=== PATIENT | male | born 1955 | race Caucasian/White ===

== ENCOUNTER 2024-04-30 07:56 | Inpatient (IN) ==
--- NOTE | 2024-04-06 14:26 | PAT Medication Instructions ---
Medication Instructions Date of Service April 06, 2024 Home Medications albuterol sulfate 90 mcg/actuation aerosol inhaler 2 puff inhalation Q6H PRN SOB alfuzosin 10 mg tablet,extended release 24 hr 10 mg PO QPM amlodipine 5 mg tablet 5 mg PO QPM aspirin 81 mg capsule 81 mg PO QAM cetirizine 10 mg tablet 10 mg PO HS coenzyme Q10 300 mg capsule (Co Q-10) 300 mg PO QAM ferrous sulfate 325 mg (65 mg iron) tablet (FeroSul) 325 mg PO UD fluticasone propionate 115 mcg-salmeterol 21 mcg/actuation HFA inhaler (Advair HFA) 2 puff inhalation BID fluticasone propionate 50 mcg/actuation nasal spray,suspension (Children's Flonase Allergy Relief) 1 spray intranasal DAILY PRN congestion/sinus symptoms hydrocodone 7.5 mg-acetaminophen 325 mg tablet 1 tab PO Q6H PRN Pain lisinopril 40 mg tablet 40 mg PO QAM meloxicam 7.5 mg tablet 7.5 mg PO BID metformin 500 mg tablet 1,000 mg PO BID montelukast 10 mg tablet (Singulair) 10 mg PO HS multivitamin 1 tab PO QPM omega-3 fatty acids 1 cap PO QPM pantoprazole 20 mg tablet,delayed release 20 mg PO QAM pioglitazone 30 mg tablet (Actos) 30 mg PO QPM rosuvastatin 5 mg tablet 5 mg PO UD tizanidine 4 mg tablet 4 mg PO Q6H trazodone 50 mg tablet 50 mg PO HS Continue as directed rosuvastatin 5 mg tablet 5 mg PO UD ASK your surgeon for instructions meloxicam 7.5 mg tablet 7.5 mg PO BID ASK your prescriber and surgeon aspirin 81 mg capsule 81 mg PO QAM STOP taking 2 weeks before surgery (or as soon as possible if surgery is within 2 weeks) coenzyme Q10 300 mg capsule (Co Q-10) 300 mg PO QAM omega-3 fatty acids 1 cap PO QPM DO NOT take the morning of surgery ferrous sulfate 325 mg (65 mg iron) tablet (FeroSul) 325 mg PO UD lisinopril 40 mg tablet 40 mg PO QAM metformin 500 mg tablet 1,000 mg PO BID pioglitazone 30 mg tablet (Actos) 30 mg PO QPM Take morning of surgery With a small sip of water, OTHERWISE NOTHING TO EAT OR DRINK AFTER MIDNIGHT: albuterol sulfate 90 mcg/actuation aerosol inhaler 2 puff inhalation Q6H PRN SOB (use if needed; please bring rescue inhaler with you to hospital day of surgery if possible) fluticasone propionate 115 mcg-salmeterol 21 mcg/actuation HFA inhaler (Advair HFA) 2 puff inhalation BID fluticasone propionate 50 mcg/actuation nasal spray,suspension (Children's Flonase Allergy Relief) 1 spray intranasal DAILY PRN congestion/sinus symptoms (if needed) hydrocodone 7.5 mg-acetaminophen 325 mg tablet 1 tab PO Q6H PRN Pain (if needed) pantoprazole 20 mg tablet,delayed release 20 mg PO QAM tizanidine 4 mg tablet 4 mg PO Q6H Take evening before surgery albuterol sulfate 90 mcg/actuation aerosol inhaler 2 puff inhalation Q6H PRN SOB (if needed) alfuzosin 10 mg tablet,extended release 24 hr 10 mg PO QPM amlodipine 5 mg tablet 5 mg PO QPM cetirizine 10 mg tablet 10 mg PO HS fluticasone propionate 115 mcg-salmeterol 21 mcg/actuation HFA inhaler (Advair HFA) 2 puff inhalation BID fluticasone propionate 50 mcg/actuation nasal spray,suspension (Children's Flonase Allergy Relief) 1 spray intranasal DAILY PRN congestion/sinus symptoms (if needed) hydrocodone 7.5 mg-acetaminophen 325 mg tablet 1 tab PO Q6H PRN Pain (if needed) metformin 500 mg tablet 1,000 mg PO BID montelukast 10 mg tablet (Singulair) 10 mg PO HS multivitamin 1 tab PO QPM pioglitazone 30 mg tablet (Actos) 30 mg PO QPM tizanidine 4 mg tablet 4 mg PO Q6H trazodone 50 mg tablet 50 mg PO HS Other Notes If you have any questions please call us at [phone] or [phone] or [phone] or [phone]
--- NOTE | 2024-04-09 09:10 | Anesthesiology Consultation ---
Date of Service April 09, 2024 Assessment & Plan (1) Encounter for pre-operative examination: - patient reports upcoming surgeon ordered medical clearance 04/16/24. Dr. Roe. - medical clearance 02/28/24: "...low risk..." - check BSG am DOS. Chart Review Chart Review: Pending: Refer to Additional Notes / Consult section and Patient seen in Pre Admission Testing Teaching & Discussion Pre-Anesthesia Teaching/Discussion Notes: Instructed NPO after midnight before surgery, except medications with 15 cc of water. Medication instructions provided according to the PAT guidelines. History Surgery Operation Date: 04/30/24 09:05 Proposed Procedures p L3-S1 Decompression and Fusion, Spinal Cord Monitoring - Chavez Dunbar, Height/Weight Height: 5 ft 9 in Weight: 90.4 kg Allergies Allergy/AdvReac Type Severity Reaction Status Date / Time No Known Allergies Allergy Verified 04/06/24 10:21 Medications Home Medications Medication Instructions Recorded Confirmed Last Taken albuterol sulfate 90 mcg/actuation 2 puff inhalation Q6H PRN SOB 04/06/24 04/06/24 Unknown aerosol inhaler alfuzosin 10 mg tablet,extended 10 mg PO QPM 04/06/24 04/06/24 Unknown release 24 hr amlodipine 5 mg tablet 5 mg PO QPM 04/06/24 04/06/24 Unknown aspirin 81 mg capsule 81 mg PO QAM 04/06/24 04/06/24 Unknown cetirizine 10 mg tablet 10 mg PO HS 04/06/24 04/06/24 Unknown coenzyme Q10 300 mg capsule (Co 300 mg PO QAM 04/06/24 04/06/24 Unknown Q-10) ferrous sulfate 325 mg (65 mg 325 mg PO UD 04/06/24 04/06/24 Unknown iron) tablet (FeroSul) fluticasone propionate 115 2 puff inhalation BID 04/06/24 04/06/24 Unknown mcg-salmeterol 21 mcg/actuation HFA inhaler (Advair HFA) fluticasone propionate 50 1 spray intranasal DAILY PRN 04/06/24 04/06/24 Unknown mcg/actuation nasal congestion/sinus symptoms spray,suspension (Children's Flonase Allergy Relief) hydrocodone 7.5 mg-acetaminophen 1 tab PO Q6H PRN Pain 04/06/24 04/06/24 Unknown 325 mg tablet lisinopril 40 mg tablet 40 mg PO QAM 04/06/24 04/06/24 Unknown meloxicam 7.5 mg tablet 7.5 mg PO BID 04/06/24 04/06/24 Unknown metformin 500 mg tablet 1,000 mg PO BID 04/06/24 04/06/24 Unknown montelukast 10 mg tablet 10 mg PO HS 04/06/24 04/06/24 Unknown (Singulair) multivitamin 1 tab PO QPM 04/06/24 04/06/24 Unknown omega-3 fatty acids 1 cap PO QPM 04/06/24 04/06/24 Unknown pantoprazole 20 mg tablet,delayed 20 mg PO QAM 04/06/24 04/06/24 Unknown release pioglitazone 30 mg tablet (Actos) 30 mg PO QPM 04/06/24 04/06/24 Unknown rosuvastatin 5 mg tablet 5 mg PO UD 04/06/24 04/06/24 Unknown tizanidine 4 mg tablet 4 mg PO Q6H 04/06/24 04/06/24 Unknown trazodone 50 mg tablet 50 mg PO HS 04/06/24 04/06/24 Unknown Past Medical History Medical History (Updated 04/09/24 @ 09:35 by Carmina Harris PA-C) Arthritis Asthma controlled, stable per pt; last albuterol inhaler use several months ago Diabetes mellitus, type 2 NIDDM Dyslipidemia Hearing loss hearing aids History of anesthesia reaction "during previous colonoscopy ~2013, woke up too early" History of nocturia Hypertension controlled, stable per pt Iron deficiency has been taking since ~10/2023; f/u PCP, then sent to specialist dr. ortega, [facility] Patient denies h/o stroke, seizures, heart attack, heart failure, blood clots/DVTs or blood transfusions. Exercise / Class Metabolic Activity II 4-5 Yardwork/Stairs/Walk up hill (denies chest discomfort or shortness of breath with one flight of stairs) Past Surgical History Surgical History History of esophagogastroduodenoscopy (EGD) 2023, [facility] in [place]; put on pantoprazole "but was never given a diagnosis for the stomach medicine" Hx of colonoscopy 2023 Hx of removal of cyst ~2019, cyst removed from pancreas; done @[facility] in [place], [place] Past Anesthesia History No Family Hx of Anesthesia Complications History of PONV No Hx of PONV and No Hx of Motion Sickness Social History Smoking Status: Former smoker Do You Dip or Chew Tobacco: No Smoking End Date: 25 years ago Hx Alcohol Use: Yes alcohol intake frequency: holidays/special occasions only Hx Substance Use: Yes substance use type: marijuana (-advised) Last Used Substance Other:: occasional use, most recent use last week Review of Systems Snoring, denies witnessed apneas. Patient denies chest pain, shortness of breath, dyspnea on exertion, reflux, fever, chills, cough, wheezing, or palpitations. Physical Exam Vital Signs Vitals BP 172/99 manual-patient notes forgot to take BP medication today, has it with him in office and took usual dose P 74 SP02 96% on RA RESP 18 Physical Patient resting comfortably in chair in no acute distress, alert and oriented, responding appropriately throughout visit Full cervical extension range of motion without pain TMD 3.5 finger breadths Mallampati Score 3 Dentition: several implants, denies chipped or loose teeth, caps/crowns, or bridges Lungs: normal respiratory effort. Good air movement, clear throughout to auscultation, no adventitious breath sounds Cardiac: regular rate and rhythm, no murmurs noted Carotid arteries: negative bruit bilat Lab Results Anesthesia Preop Results Results Anesthesia Widget: WBC 10.87 K/ul (4.8-10.8) H 04/09/24 Hgb 13.7 g/dl (14.0-18.0) L 04/09/24 Hct 40.4 % (42.0-52.0) L 04/09/24 Plt 423 K/uL (130-400) H 04/09/24 Na 139 mmol/L (136-145) 04/09/24 K 4.1 mmol/L (3.5-5.1) 04/09/24 Cl 102 mmol/L (98-107) 04/09/24 CO2 28 mmol/L (21-32) 04/09/24 BUN 17 mg/dl (6-23) 04/09/24 Creat 0.92 mg/dl (0.6-1.4) 04/09/24 Glucose Level 132 mg/dl (70-99(Fasting)) H 04/09/24 PT 10.3 Seconds (9.0-12.0) 04/09/24 PTT 27 Seconds (21-31) 04/09/24 INR 0.9 (0.9-1.1) 04/09/24 HA1c 6.1 % (4.5-5.6) H 04/09/24 Urine Color Yellow 04/09/24 Urine Appearance Clear (Clear) 04/09/24 Urine pH 6.0 (4.5-7.5) 04/09/24 Urine Specific [place] 1.018 (1.000-1.030) 04/09/24 Urine Protein Negative (Negative) 04/09/24 Urine Glucose (UA) 1+ (Negative) H 04/09/24 Urine Ketones Negative (Negative) 04/09/24 Urine Blood Negative (Negative) 04/09/24 Urine Nitrite Negative (Negative) 04/09/24 Urine Bilirubin Negative (Negative) 04/09/24 Urine Urobilinogen Negative (Negative) 04/09/24 Urine Leukocyte Esterase Negative (Negative) 04/09/24 Blood Type A Positive 04/09/24 Antibody Screen NEGATIVE 04/09/24 Testing Electrocardiogram Date: 04/09/24 NSR, rate 77 bpm Incomplete RBBB Left anterior fascicular block Echocardiogram Date: 09/19/23 EF 60% Borderline LVH Mild tricuspid regurgitation Mild pulmonic regurgitation Pericardial space is echodense that is likely prominent epicardial fat Stress Test Date: 11/08/22 Normal maximal exercise treadmill exercise test, indicating that the probability of hemodynamically significant underlying coronary artery disease being present is low MPHR 98% METS [address] lung screen 07/17/23 continue annual screening with LDCT in 12 months Heavy coarse calcification mid segment LAD Calcifications in the right thyroid lobe
[2024-04-30] MEDS ORDERED: LIDOCAINE 2% 2 ML VIAL/AMP(20MG/ML) INFIL ONE (08:45)
[2024-04-30] MEDS ORDERED: ROCURONIUM BROMIDE 10 MG/ML 5 ML VIAL IV ONE ×2 (08:45→10:12)
[2024-04-30] MEDS ORDERED: fentaNYL citrate PF 100 MCG/2 ML VIAL ONE ×2 (08:45→11:58)
[2024-04-30] MEDS ORDERED: ONDANSETRON INJ 2 MG/ML 2 ML VIAL ONE (08:45)
[2024-04-30] MEDS ORDERED: DEXAMETHASONE SOD INJ 4 MG/ML VIAL ONE (08:45)
[2024-04-30] MEDS ORDERED: PROPOFOL IV EMULSION 10 MG/ML 20 ML VIAL IV ONE (08:45)
[2024-04-30] MEDS ORDERED: MIDAZOLAM HCL 1 MG/ML 2ML VIAL ONE (08:45)
[2024-04-30] MEDS ORDERED: GLYCOPYRROLATE 0.2 MG/ML VIAL ONE ×3 (08:45→11:50)
[2024-04-30] MEDS: LACTATED RINGER'S 1,000 ML IV SCH (08:52)
[2024-04-30] MEDS: ACETAMINOPHEN 500 MG TAB PO SCH (08:53)
[2024-04-30] MEDS ORDERED: NEOSTIGMINE METHYLSULFATE 1 MG/ML 10ML VIAL ONE ×3 (08:55→11:50)
[2024-04-30] MEDS: CeleBREX 200 MG CAP PO SCH (08:55)
[2024-04-30] MEDS: GABAPENTIN 300 MG CAP PO SCH (08:55)
--- NOTE | 2024-04-30 09:10 | History & Physical Bridge Note ---
Date of Service April 30, 2024 History & Physical Bridge Note I have examined the patient, reviewed the History & Physical and in the interval since the performance of the History & Physical I have noted the following changes of clinical significance: no changes noted
--- NOTE | 2024-04-30 09:11 | History & Physical Report ---
Date of Service April 30, 2024 Assessment & Plan (1) Lumbosacral spondylosis with radiculopathy: Plan: L3-S1 decompression and fusion History of Present Illness Chief Complaint: Back and bilateral leg pain Primary Care Provider: Sushant Roe MD This is a 60-year-old male who presents with chronic persistent back and bilaterally pain after failing course of nonoperative care is here for surgical invention. Allergies Allergy/AdvReac Type Severity Reaction Status Date / Time No Known Allergies Allergy Verified 04/30/24 08:40 Home Medications Medication Instructions Recorded Confirmed Type albuterol sulfate 90 mcg/actuation 2 puff inhalation Q6H PRN SOB 04/06/24 04/30/24 History aerosol inhaler alfuzosin 10 mg tablet,extended 10 mg PO QPM 04/06/24 04/30/24 History release 24 hr amlodipine 5 mg tablet 5 mg PO QPM 04/06/24 04/30/24 History aspirin 81 mg capsule 81 mg PO QAM 04/06/24 04/30/24 History cetirizine 10 mg tablet 10 mg PO HS 04/06/24 04/30/24 History coenzyme Q10 300 mg capsule (Co 300 mg PO QAM 04/06/24 04/30/24 History Q-10) ferrous sulfate 325 mg (65 mg 325 mg PO UD 04/06/24 04/30/24 History iron) tablet (FeroSul) fluticasone propionate 115 2 puff inhalation BID 04/06/24 04/30/24 History mcg-salmeterol 21 mcg/actuation HFA inhaler (Advair HFA) fluticasone propionate 50 1 spray intranasal DAILY PRN 04/06/24 04/30/24 History mcg/actuation nasal congestion/sinus symptoms spray,suspension (Children's Flonase Allergy Relief) hydrocodone 7.5 mg-acetaminophen 1 tab PO Q6H PRN Pain 04/06/24 04/30/24 History 325 mg tablet lisinopril 40 mg tablet 40 mg PO QAM 04/06/24 04/30/24 History meloxicam 7.5 mg tablet 7.5 mg PO BID 04/06/24 04/30/24 History metformin 500 mg tablet 1,000 mg PO BID 04/06/24 04/30/24 History montelukast 10 mg tablet 10 mg PO HS 04/06/24 04/30/24 History (Singulair) multivitamin 1 tab PO QPM 04/06/24 04/30/24 History omega-3 fatty acids 1 cap PO QPM 04/06/24 04/30/24 History pantoprazole 20 mg tablet,delayed 20 mg PO QAM 04/06/24 04/30/24 History release pioglitazone 30 mg tablet (Actos) 30 mg PO QPM 04/06/24 04/30/24 History rosuvastatin 5 mg tablet 5 mg PO UD 04/06/24 04/30/24 History tizanidine 4 mg tablet 4 mg PO Q6H 04/06/24 04/30/24 History trazodone 50 mg tablet 50 mg PO HS 04/06/24 04/30/24 History Past Med/Surg History Problem List (Updated 04/30/24 @ 09:11 by Chavez Dunbar DO) Lumbosacral spondylosis with radiculopathy Encounter for pre-operative examination Medical History (Updated 04/30/24 @ 09:11 by Chavez Dunbar DO) Hearing loss hearing aids History of anesthesia reaction "during previous colonoscopy ~2013, woke up too early" Arthritis Asthma controlled, stable per pt; last albuterol inhaler use several months ago Hypertension controlled, stable per pt History of nocturia Dyslipidemia Iron deficiency has been taking since ~10/2023; f/u PCP, then sent to specialist dr. ortega, [facility] Diabetes mellitus, type 2 NIDDM Surgical History Hx of removal of cyst ~2018, cyst removed from pancreas; done @[facility] in [place], [place] Hx of colonoscopy 2023 History of esophagogastroduodenoscopy (EGD) 2023, [facility] in [place]; put on pantoprazole "but was never given a diagnosis for the stomach medicine" Social History Smoking Status: Former smoker Smoking End Date: 25 years ago; Second Hand Exposure: No; Do You Dip or Chew Tobacco: No; Tobacco Cessation Education Requested by Patient: No Hx Alcohol Use: Yes Hx Substance Use: Yes Last Used Substance Other:: occasional use, most recent use last week Preferred Language: Serbian Communication Ability: Effective Log Hooker Required: No Beliefs That Will Affect Care: [employer] Beliefs: Jainism Current Living Situation: Spouse Other Information That Helps Us Care for You: No Feels Safe at Home: Yes Safety Concerns: Feels Safe At This Time Assistive Devices: Hearing Aid - Bilateral Physical Exam Physical Exam: Patient is alert and oriented heart regular rhythm Lungs clear Results & Data Results & Data Vital Signs (Past 12 Hours) Vital Signs Temp Pulse Resp BP Pulse Ox O2 Del Method 04/30/24 08:31 36.8 C 79 15 170/74 H 97 Room Air
[2024-04-30] MEDS ORDERED: ATROPINE SULFATE 0.1 MG/ML 10ML SYR IV PRN (09:42)
[2024-04-30] MEDS ORDERED: PROMETHAZINE HCL 6.25 MG in SODIUM CHLORIDE 0.9% 50 ML IV PRN (09:42)
[2024-04-30] MEDS ORDERED: ONDANSETRON INJ 2 MG/ML 2 ML VIAL IV PRN ×2 (09:42→16:36)
[2024-04-30] MEDS ORDERED: ePHEDrine sulfate 50 MG/ML AMP IV PRN (09:42)
[2024-04-30] MEDS: ceFAZolin 2000MG 2,000 MG/15 ML SYR IV SCH ×2 (09:47→18:06)
[2024-04-30] MEDS ORDERED: PHENYLEPHRINE 100MCG/ML 5ML SYR ONE (10:08)
[2024-04-30] MEDS: BUPIVACAINE/EPINEPHRINE 0.25% 1:200,000 30 ML VIAL ONE (10:15)
[2024-04-30] MEDS ORDERED: PHENYLEPHRINE HCL 10 MG/ML VIAL ONE (10:27)
[2024-04-30] MEDS ORDERED: ePHEDrine sulfate 50 MG/5 ML SYR ONE ×2 (10:34)
[2024-04-30] MEDS: ceFAZolin 330 MG/ML 1 GM VIAL ONE (11:44)
[2024-04-30] MEDS: FLOSEAL HEMOSTATIC MATRIX 10ML TOP ONE (11:44)
--- NOTE | 2024-04-30 12:07 | Operative Report ---
Post Operative Report Pre & Post Diagnosis Operation Date: 04/30/24 09:35 Pre-Op Diagnosis: Lumbosacral spondylosis with radiculopathy Post-Op Diagnosis: Lumbosacral spondylosis with radiculopathy I identified the patient and participated in the time-out.: Yes Procedure Operation Date: 04/30/24 09:35 Actual Procedures 1. Lumbar decompression with bilateral medial facetectomies and foraminotomies L2-L3, L3-L4 and L4-L5. #2 posterior spinal fusion L3-L5. #3 placement posterior instrumentation L3-L5. #4 interbody fusion L3-L4 L4-L5 #5 history of Spira 14 x 26 mm at L3-L4 and 13 x 26 mm x 2 at L4-L5. #6 placement locally harvested morselized autograft posterior gutters. #7 placement infuse collagen sponge, with Koros in the posterior lateral gutters and os design and interbody space. #8 application of versa wrap over the exposed dura. Surgeon Chavez Dunbar, DO [employer] Set Up Mechanic none Estimated Blood Loss 100 Findings Consistent with Post-Op Diagnosis Specimens none Indications This 68-year-old male presents above-mentioned diagnosis of failed course of nonoperative care is here for surgical invention. Description of Procedure Patient was met with identified informed consent obtained. Patient was then taken to the operative suite underwent patient placed in a prone position on the Meng table atop the Floyd frame. All bony prominences well-padded eyes inspected to ensure no external pressure placed upon them. This point the lumbar spine is prepped and draped no sterile fashion. Sharp dissection with the assistance of Bovie cautery performed down to and exposing the lamina transverse processes of L3-L4-L5 bilaterally. Russell cephalad fashion complete laminectomy of L4 was performed including bilaterally of facetectomies and foraminotomies. This followed by complete laminectomy of L3 with bilateral medial facetectomies and foraminotomies again addressing severe spinal stenosis. Lastly performed partial laminectomy of L2 with bilateral medial facetectomies to address all subarticular stenosis. Pedicle screws were then placed in L3-L4-L5 bilaterally with assistance of fluoroscopy and the properly sized hattie placed. By way transforaminal approach on the left a discectomy of L4-L5 was performed endplates guided to subcortical bleeding bone and a 13 x 26 mm Spira cage filled with os design bone graft tapped in position. Then proceeded to the right transforaminal region at L4-5. Again discectomy performed endplates guided to subcortical bleeding bone and a second 13 x 26 mm Spira cage filled with os design tapped in position. Then proceeded L3-L4 and by way of a transforaminal portion of the left a complete discectomy was performed endplates guided to subcortical bleeding bone and a 14 x 26 mm Spira cage filled with os design tapped in position. Rods were then compressed locked in final decision bilaterally. The transverse processes of L3 L4-5 burred to subcortical bleeding bone. Infuse collagen sponge, with Koros and locally harvested morselized graft placed in posterior gutters. Versa wrap placed over the exposed dura. 15 round KALYANI drain inserted. The incision was then closed with 1 Vicryl the fascia 2-0 Vicryl subcutaneously and 4 Monocryl for final skin closure. Steri-Strips sterile dressing placed. Patient waken taken PACU stable condition. Im ordering 20 grams of Triple Shandon Collagen Powder ([email or web address] [id number]) to treat an incision wound that was caused by a spine procedure. The incision is approximately 2 cm(W) x 4 cm(L) into the joint (D) in size and is a full thickness wound. Triple Shandon collagen comes in 1 gram packets so 20 packets were ordered. Given the size of the wound, with light to moderate exudate I chose to order a 20 day supply. The patient will be provided instructions for proper application of the collagen wound kit. The patient will be asked to apply the collagen powder daily and then cover it with sterile dressings dispensed. Collagen was selected as I expect the collagen to attract monocytes and fibroblasts, act as a sacrificial substrate for MMPs, and ultimately proved a matrix for tissue and vessel growth. The collagen will act as a primary dressing in this scenario. It is medically necessary for proper healing of these wounds to improve bioavailability and contact with each wound surface, this is also to help prevent infection of wounds and promote healing ultimately leading to a better healing outcome and limit the risk of infection. I attest to the content of the Intraoperative Record and any orders documented therein. Any exceptions are noted below.
[2024-04-30] MEDS: fentaNYL citrate PF 100 MCG/2 ML VIAL IV PRN (12:30)
[2024-04-30] MEDS: HYDROmorphone INJ 2 MG/ML SYR/VIAL IV PRN (13:02)
[2024-04-30] MEDS: HYDROmorphone INJ 2 MG/ML SYR/VIAL ONE (13:41)
[2024-04-30] MEDS: HYDROmorphone INJ 0.5 MG/0.5 ML SYR IV PRN (13:41)
--- NOTE | 2024-04-30 13:49 | Fluoroscopy Report ---
FL lumbar spine 2-3V CLINICAL HISTORY: L3-S1 DECOMPRESSION AND FUSION COMPARISON STUDY: None FLUOROSCOPY TIME: 23.6 seconds FLUOROSCOPY IMAGES: 2 EXPOSURE DOSE: 11.94 mGy FINDINGS: Posterior interbody rods and screw fusion with discectomy noted at what is labeled L3-L5. H ardware appears intact. No unexpected opaque foreign bodies. Images were submitted following completi on of the surgery. IMPRESSION: Fluoroscopic assistance as above. ACT 112: Negative or not required by law. Electronically signed by: Alex Wills M.D. 04/30/2024 1:48 PM
--- NOTE | 2024-04-30 15:14 | Anesthesiology Progress Note ---
Date of Service April 30, 2024 Anesthesia Post Procedure Vital Signs Vital Signs: Temp Pulse Pulse Resp BP Pulse Ox O2 Del Method 04/30/24 15:00 81 12 131/60 98 Nasal Cannula 04/30/24 14:45 82 12 133/60 95 Nasal Cannula 04/30/24 14:30 93 H 19 130/70 97 Nasal Cannula 04/30/24 14:15 37 C 82 12 134/61 98 Nasal Cannula 04/30/24 14:00 88 18 147/72 H 96 Nasal Cannula 04/30/24 13:45 36.5 C 81 13 143/63 H 96 Nasal Cannula 04/30/24 13:35 84 15 144/66 H 98 Nasal Cannula 04/30/24 13:25 68 12 133/63 99 Nasal Cannula 04/30/24 13:15 82 13 149/67 H 97 Nasal Cannula 04/30/24 13:05 83 14 146/69 H 99 Nasal Cannula 04/30/24 12:55 80 14 144/64 H 98 Nasal Cannula 04/30/24 12:45 85 16 141/74 H 97 Oxymask 04/30/24 12:35 74 12 129/69 100 Oxymask 04/30/24 12:25 77 12 142/68 H 100 Oxymask 04/30/24 12:18 36.7 C 85 18 129/73 99 Oxymask 04/30/24 08:31 36.8 C 79 15 170/74 H 97 Room Air O2 Flow Rate 04/30/24 15:00 2 04/30/24 14:45 2 04/30/24 14:30 2 04/30/24 14:15 2 04/30/24 14:00 2 04/30/24 13:45 2 04/30/24 13:35 2 04/30/24 13:25 2 04/30/24 13:15 2 04/30/24 13:05 2 04/30/24 12:55 3 04/30/24 12:45 3 04/30/24 12:35 6 04/30/24 12:25 8 04/30/24 12:18 8 04/30/24 08:31 Pain Intensity Back: Pain Intensity: 4 Transfer of Care Handoff Completed per policy Notes Mental Status: alert / awake / arousable and participated in evaluation Patient Amnestic to Procedure: Yes Nausea / Vomiting: adequately controlled Pain: adequately controlled Airway Patency, RR, SpO2: stable & adequate BP & HR: stable & adequate Hydration State: stable & adequate Anesthetic Complications: no major complications apparent
[2024-04-30] MEDS: LR 60ML/HR IV SCH (16:30)
[2024-04-30] MEDS ORDERED: DO NOT ADMINISTER FLU VACCINE PRN (16:36)
[2024-04-30] MEDS ORDERED: PHARMACY GLYCEMIC MGMT CONSULT PRN (16:36)
[2024-04-30] MEDS ORDERED: NALOXONE HCL 0.4 MG/1 ML VIAL/CARP IV PRN (16:36)
[2024-04-30] MEDS ORDERED: ACETAMINOPHEN 500 MG TAB PO PRN (16:36)
[2024-04-30] MEDS ORDERED: bisacodyL 10 MG SUPP PR PRN (16:36)
[2024-04-30] MEDS ORDERED: MAGNESIUM HYDROXIDE SUSP 30 ML UDC PO PRN (16:36)
[2024-04-30] MEDS ORDERED: PROMETHAZINE 12.5 MG/50.5 ML BAG IV PRN (16:36)
[2024-04-30] MEDS ORDERED: SOD PHOSPHATE/SOD BIPHOSPHATE ENEMA 132 ML BTL PR PRN (16:36)
[2024-04-30] MEDS ORDERED: METOCLOPRAMIDE HCL INJ 5 MG/ML 2 ML VIAL IV PRN (16:36)
[2024-04-30] MEDS ORDERED: ONDANSETRON 4 MG OD TAB PO PRN (16:36)
[2024-04-30] MEDS ORDERED: ALBUTEROL HFA 8 GM INHALER INH PRN (16:36)
[2024-04-30] MEDS ORDERED: LORazepam 2 MG/1 ML VIAL IV PRN (16:36)
[2024-04-30] MEDS ORDERED: ACETAMINOPHEN 1,000 MG/100 ML VIAL IV PRN (16:36)
[2024-04-30] MEDS ORDERED: FLUTICASONE PROPIONATE NA SPR 16 GM BTL PRN (16:36)
[2024-04-30] MEDS ORDERED: DO NOT ADMINISTER PNEUMOCOCCAL VACCINE PRN (16:36)
[2024-04-30] MEDS ORDERED: hydrOXYzine HCl 25 MG TAB PO PRN (16:36)
[2024-04-30] MEDS ORDERED: FAMOTIDINE 20 MG TAB PO PRN (16:36)
[2024-04-30] MEDS ORDERED: diphenhydrAMINE Capsule 25 MG CAP PO PRN (16:36)
[2024-04-30] MEDS ORDERED: ALUMINUM/MAGNESIUM SUSP 30 ML UDC PO PRN (16:36)
[2024-04-30] MEDS ORDERED: LORazepam 0.5 MG TAB PO PRN (16:36)
[2024-04-30] MEDS ORDERED: oxyCODONE HCL IR 5 MG TAB (IMMEDIATE RELEASE) PO PRN (16:36)
[2024-04-30] MEDS: HYDROmorphone INJ 1 MG/ML SYRINGE IV PRN (16:55)
--- NOTE | 2024-04-30 17:08 | Hospitalist Consultation ---
Date of Consultation April 30, 2024 Assessment & Plan (1) S/P spinal surgery: This is a 68yo M with a PMH of DM II, HTN, CARLOTA, asthma and other medical problems listed below who is POD#0 s/p Lumbar decompression with bilateral medial facetectomies and foraminotomies L2-L5 and posterior spinal fusion L3-L5 by Dr. Dunbar. POD#0 s/p Lumbar decompression with bilateral medial facetectomies and foraminotomies L2-L5 and posterior spinal fusion L3-L5 by Dr. Dunbar Per ortho for pain control, wound care, anticoagulation and activities Monitor H&H (EBL 100ml, pre-op hgb 13.7), continue incentive spirometry, PT/OT when appropriate (2) Asthma: Stable. Continue Advair BID, PRN albuterol inh, singulair (3) Hypertension: Continue lisinopril daily, amlodipine HS, alfuzosin HS (4) Diabetes mellitus, type 2: A1c 6.1 / Hold home agents SSI while in-patient, receiving IV dexamethasone Glycemic pharmacy consulted BSG AC HS (5) Iron deficiency: Hgb 13.7 pre-operatively Iron supplement at home Monitor with daily CBC (6) Dyslipidemia: Continue statin DVT Ppx: SCDs PCP: [facility] Dispo: Admitted to med/surg, ortho primary Patient seen in collaboration with Dr. Monroy. Please see addendum. I spent a total of 55 minutes coordinating, documenting, and providing care for this patient excluding time spent in the performance of separately billed services. Thank you for this consultation. We will follow the patient with you during their hospital stay. You can reach a member of the [facility] Hospitalist Team 26/11 via [facility] [place]. Supervising Physician Co-Signing Physician Notes Attending Addendum: Case reviewed with the advanced practitioner. I have personally performed a history and physical examination on the patient. I have reviewed the advanced practitioner's documentation on the date of service referenced in note, and I agree with, and take responsibility for the plan of care. please refer to her notes for full details patient seen and examined, records reviewed by myself as well Shree Monroy MD History of Present Illness Reason for Consultation: post op med mgmt Attending Physician: Chavez Dunbar, DO History of Present Illness This is a 68yo M with a PMH of DM II, HTN, CARLOTA, asthma and other medical problems listed below who is POD#0 s/p Lumbar decompression with bilateral medial facetectomies and foraminotomies L2-L5 and posterior spinal fusion L3-L5 by Dr. Dunbar. Feeling well postoperatively. Mild surgical site discomfort but denies any pain or paresthesias of bilateral lower extremities. About to trial clear liquids for dinner. Denies any lightheadedness, headache, chest pain, shortness of breath, nausea, vomiting, abdominal pain, dysuria, diarrhea or constipation. Follows with [facility] for primary care. Compliant with medications. Allergies Allergy/AdvReac Type Severity Reaction Status Date / Time No Known Allergies Allergy Verified 04/30/24 08:40 Home Medications Medication Instructions Recorded Confirmed Type albuterol sulfate 90 mcg/actuation 2 puff inhalation Q6H PRN SOB 04/06/24 04/30/24 History aerosol inhaler alfuzosin 10 mg tablet,extended 10 mg PO QPM 04/06/24 04/30/24 History release 24 hr amlodipine 5 mg tablet 5 mg PO QPM 04/06/24 04/30/24 History aspirin 81 mg capsule 81 mg PO QAM 04/06/24 04/30/24 History cetirizine 10 mg tablet 10 mg PO HS 04/06/24 04/30/24 History coenzyme Q10 300 mg capsule (Co 300 mg PO QAM 04/06/24 04/30/24 History Q-10) ferrous sulfate 325 mg (65 mg 325 mg PO UD 04/06/24 04/30/24 History iron) tablet (FeroSul) fluticasone propionate 115 2 puff inhalation BID 04/06/24 04/30/24 History mcg-salmeterol 21 mcg/actuation HFA inhaler (Advair HFA) fluticasone propionate 50 1 spray intranasal DAILY PRN 04/06/24 04/30/24 History mcg/actuation nasal congestion/sinus symptoms spray,suspension (Children's Flonase Allergy Relief) hydrocodone 7.5 mg-acetaminophen 1 tab PO Q6H PRN Pain 04/06/24 04/30/24 History 325 mg tablet lisinopril 40 mg tablet 40 mg PO QAM 04/06/24 04/30/24 History meloxicam 7.5 mg tablet 7.5 mg PO BID 04/06/24 04/30/24 History metformin 500 mg tablet 1,000 mg PO BID 04/06/24 04/30/24 History montelukast 10 mg tablet 10 mg PO HS 04/06/24 04/30/24 History (Singulair) multivitamin 1 tab PO QPM 04/06/24 04/30/24 History omega-3 fatty acids 1 cap PO QPM 04/06/24 04/30/24 History pantoprazole 20 mg tablet,delayed 20 mg PO QAM 04/06/24 04/30/24 History release pioglitazone 30 mg tablet (Actos) 30 mg PO QPM 04/06/24 04/30/24 History rosuvastatin 5 mg tablet 5 mg PO UD 04/06/24 04/30/24 History tizanidine 4 mg tablet 4 mg PO Q6H 04/06/24 04/30/24 History trazodone 50 mg tablet 50 mg PO HS 04/06/24 04/30/24 History Patient History Medical History Hearing loss hearing aids History of anesthesia reaction "during previous colonoscopy ~2013, woke up too early" Arthritis Asthma controlled, stable per pt; last albuterol inhaler use several months ago Hypertension controlled, stable per pt History of nocturia Dyslipidemia Iron deficiency has been taking since ~10/2023; f/u PCP, then sent to specialist dr. ortega, [facility] Diabetes mellitus, type 2 NIDDM Surgical History (Updated 04/30/24 @ 17:07 by Yvette Galvez PA-C) Hx of removal of cyst ~2018, cyst removed from pancreas; done @[facility] in [place], [place] Hx of colonoscopy 2023 History of esophagogastroduodenoscopy (EGD) 2023, [facility] in [place]; put on pantoprazole "but was never given a diagnosis for the stomach medicine" Family History Other Hypertension Social History Smoking Status: Former smoker Smoking End Date: 25 years ago; Second Hand Exposure: No; Do You Dip or Chew Tobacco: No; Tobacco Cessation Education Requested by Patient: No Hx Alcohol Use: Yes Hx Substance Use: Yes Last Used Substance Other:: occasional use, most recent use last week Preferred Language: Estonian Communication Ability: Effective Business Solutions Director Required: No Beliefs That Will Affect Care: Sabianist Sabianist Beliefs: Congregation Current Living Situation: Spouse Other Information That Helps Us Care for You: No Feels Safe at Home: Yes Safety Concerns: Feels Safe At This Time Assistive Devices: Hearing Aid - Bilateral Review of Systems Review of Systems: At least ten systems reviewed and negative except as noted in the HPI. Physical Exam Physical Exam: General Appearance: WD/WN, vitals as above, NAD, resting comfortably Head: normocephalic, atraumatic Eyes: normal inspection, PERRL ENT: oropharynx normal Neck: normal visual inspection Respiratory: normal respiratory effort, lungs clear to auscultation Cardiovascular: regular rate, rhythm, normal peripheral pulses, no BLE edema Abdomen/GI: normal bowel sounds, soft, nontender, no hepatosplenomegaly Extremities/Musculoskeletal: + S/p spinal dressing, c/d/i, +KALYANI drain visualized. No cyanosis or clubbing, extremities motor strength 5/5 Neurologic: PERRL, EOMI, accommodation nl, no face palsy, no dysarthria, CN's II-XI intact bilaterally and moves all extremities Psychiatric: A+Ox3, euthymic affect Skin: no rashes, normal color, warm/dry Results & Data Results & Data Vital Signs (Past 12 Hours) Vital Signs Temp Pulse Pulse Pulse Resp BP Pulse Ox 04/30/24 16:29 36.9 C 96 H 16 144/79 H 97 04/30/24 16:00 96 H 12 124/65 97 04/30/24 15:30 95 H 12 141/66 H 96 04/30/24 15:00 81 12 131/60 98 04/30/24 14:45 82 12 133/60 95 04/30/24 14:30 93 H 19 130/70 97 04/30/24 14:15 37 C 82 12 134/61 98 04/30/24 14:00 88 18 147/72 H 96 04/30/24 13:45 36.5 C 81 13 143/63 H 96 04/30/24 13:35 84 15 144/66 H 98 04/30/24 13:25 68 12 133/63 99 04/30/24 13:15 82 13 149/67 H 97 04/30/24 13:05 83 14 146/69 H 99 04/30/24 12:55 80 14 144/64 H 98 04/30/24 12:45 85 16 141/74 H 97 04/30/24 12:35 74 12 129/69 100 04/30/24 12:25 77 12 142/68 H 100 04/30/24 12:18 36.7 C 85 18 129/73 99 04/30/24 08:31 36.8 C 79 15 170/74 H 97 O2 Del Method O2 Flow Rate 04/30/24 16:29 Nasal Cannula 2 04/30/24 16:00 Nasal Cannula 2 04/30/24 15:30 Nasal Cannula 2 04/30/24 15:00 Nasal Cannula 2 04/30/24 14:45 Nasal Cannula 2 04/30/24 14:30 Nasal Cannula 2 04/30/24 14:15 Nasal Cannula 2 04/30/24 14:00 Nasal Cannula 2 04/30/24 13:45 Nasal Cannula 2 04/30/24 13:35 Nasal Cannula 2 04/30/24 13:25 Nasal Cannula 2 04/30/24 13:15 Nasal Cannula 2 04/30/24 13:05 Nasal Cannula 2 04/30/24 12:55 Nasal Cannula 3 04/30/24 12:45 Oxymask 3 04/30/24 12:35 Oxymask 6 04/30/24 12:25 Oxymask 8 04/30/24 12:18 Oxymask 8 04/30/24 08:31 Room Air
[2024-04-30] MEDS: tiZANidine HCL 4 MG TABLET PO SCH (17:51)
[2024-04-30] MEDS: FERROUS SULFATE 325 MG TAB PO SCH (17:51)
[2024-04-30] MEDS: INSULIN ASPART PER UNIT CHARGE SC SCH (18:02)
[2024-04-30] MEDS: LANTUS PER UNIT CHARGE SC STA (18:03)
[2024-04-30] MEDS: FLUTICASONE/VILANTEROL 200/25MCG 14 PUFFS/INHALER INH SCH (18:05)
[2024-04-30] MEDS: ROSUVASTATIN CALCIUM 5 MG TAB PO SCH (18:05)
[2024-04-30] MEDS: HYDROcodone/APAP 7.5/325mg/15mL ELIX 15 ML/CUP PO PRN (19:50)
[2024-04-30] MEDS: DOCUSATE SODIUM/SENNA 50/8.6MG TAB PO SCH (20:49)
[2024-04-30] MEDS: amLODIPine BESYLATE 5 MG TAB PO SCH (20:51)
[2024-04-30] MEDS: CETIRIZINE HCL 10 MG TABLET PO SCH (20:51)
[2024-04-30] MEDS: MONTELUKAST SODIUM 10 MG TABLET PO SCH (20:52)
[2024-04-30] MEDS: MULTIVITAMIN TAB PO SCH (20:52)
[2024-04-30] MEDS: TAMSULOSIN HCL 0.4 MG CAP PO SCH (20:53)
[2024-04-30] MEDS: traZODone HCL 50 MG TAB PO SCH (20:54)
[2024-04-30] MEDS ORDERED: NON-FORMULARY MEDICATION (Pioglitazone [Actos] 30 mg Tablet) PO SCH (21:00)
[2024-05-01] MEDS: HYDROmorphone INJ 0.5 MG/0.5 ML SYR IV PRN (03:05)
[2024-05-01] MEDS: traMADol HCL 50 MG TABLET PO PRN (05:35)
[2024-05-01] MEDS: POLYETHYLENE (MIRALAX) 17 GM PACK PO SCH (05:39)
[2024-05-01 07:52] LABS: BUN Creatinine Ratio 16.4 (10-20); Calcium 9.6 mg/dl (8.6-10.3); Creatinine Clr Calc Pharmacy 66.7 ml/min; Potassium 3.7 mmol/L (3.5-5.1)
[2024-05-01 07:56] LABS: Basophils # (auto) 0.05 K/uL (0.00-0.20); Basophils % (auto) 0.3 %; Eosinophils # (auto) 0.02 K/uL (0.00-0.50); Eosinophils % (auto) 0.1 %; Hematocrit (blood only) 33.4 % (42.0-52.0); Immature Granulocytes # (auto) 0.07 K/uL (0.01-0.20); Immature Granulocytes % (auto) 0.4 %; Lymphocytes # (auto) 1.97 K/uL (1.20-3.40); Lymphocytes % (auto) 11.8 %; Mean Corpuscular Hemoglobin 31.6 pg (25.0-34.0); Mean Corpuscular Hgb Conc 32.9 g/dL (32.0-36.0); Mean Platelet Volume 9.8 fL (9.4-12.4); Monocytes % (auto) 12.6 %; Neutrophils # (auto) 12.44 K/uL (1.40-6.50); Neutrophils % (auto) 74.8 %; Platelet Count 343 K/uL (130-400); RDW Coefficient of Variation 13.6 % (11.5-14.5); RDW Standard Deviation 47.9 fL (36.4-46.3); Red Blood Count 3.48 M/uL (4.70-6.10); White Blood Count 16.65 K/ul (4.8-10.8)
[2024-05-01] MEDS: dexAMETHasone 6 MG in SYRINGE 0 ML IV SCH (08:18)
[2024-05-01] MEDS: ASPIRIN 81 MG ECTAB PO SCH (08:18)
[2024-05-01] MEDS: lisinopril 40 MG TAB PO SCH (08:19)
[2024-05-01] MEDS: PANTOprazole 40 MG TAB PO SCH (08:19)
[2024-05-01] MEDS: LANTUS PER UNIT CHARGE SC ONE (08:24)
--- NOTE | 2024-05-01 08:25 | Hospitalist Progress Note ---
Date of Service May 01, 2024 Assessment & Plan (1) S/P spinal surgery: (2) Asthma: (3) Hypertension: (4) Diabetes mellitus, type 2: (5) Iron deficiency: (6) Dyslipidemia: Plan This is a 68yo M with a PMH of DM II, HTN, CARLOTA, asthma and other medical problems listed below who is POD#0 s/p Lumbar decompression with bilateral medial facetectomies and foraminotomies L2-L5 and posterior spinal fusion L3-L5 by Dr. Dunbar. POD#1 s/p Lumbar decompression with bilateral medial facetectomies and foraminotomies L2-L5 and posterior spinal fusion L3-L5 by Dr. Dunbar Per ortho for pain control, wound care, anticoagulation and activities continue incentive spirometry, PT/OT as able plan for dispo home likely per patient goals #Asthma: Stable. Continue Advair BID, PRN albuterol inh, singulair #Hypertension: Continue lisinopril daily, amlodipine HS, alfuzosin HS #Diabetes mellitus, type 2: A1c 6.1 04/09 Hold home agents SSI while in-patient, receiving IV dexamethasone Glycemic pharmacy consulted BSG AC HS #Acute on chronic anemia 2/2 post op loss # Iron deficiency: hgb preop 13, now 11.0 monitor output from KALYANI drain trend CBC, transfuse <7 (6) Dyslipidemia: Continue statin DVT Ppx: SCDs PCP: [facility] Harry Dispo: Admitted to med/surg, ortho primary Admission and Anticipated Discharge Date Admission Date: April 30, 2024 Subjective Walked around last evening, ambulating reports post op discomfort is better controlled Passing flatus no BM vázquez in place with plans for removal today Physical Exam Constitutional: WD/WN, vitals as above Respiratory: normal respiratory effort, lungs clear to auscultation Cardiovascular: RRR, no murmur, no edema Gastrointestinal (Abdomen): normal bowel sounds, soft, nontender, no hepatosplenomegaly Results & Data Results & Data Vital Signs (Past 12 Hours) Vital Signs Temp Pulse Resp BP BP Pulse Ox O2 Del Method 05/01/24 07:44 36.7 C 70 16 133/68 97 Room Air 05/01/24 03:00 36.7 C 67 14 114/56 L 94 Room Air 04/30/24 23:06 36.6 C 72 14 134/66 93 Room Air Laboratory Results Short CBC 05/01/24 Range/Units 07:05 WBC 16.65 H (4.8-10.8) K/ul Hgb 11.0 L (14.0-18.0) g/dl Hct 33.4 L (42.0-52.0) % Plt Count 343 (130-400) K/uL BMP 05/01/24 07:05 Sodium 139 Potassium 3.7 Chloride 102 Carbon Dioxide 31 BUN 19 Creatinine 1.16 Glucose 158 H Calcium 9.6 Medications Administered Home Medications Medication Instructions Recorded Confirmed Last Taken albuterol sulfate 90 mcg/actuation 2 puff inhalation Q6H PRN SOB 04/06/24 04/30/24 1 Month Ago aerosol inhaler ~03/31/24 alfuzosin 10 mg tablet,extended 10 mg PO QPM 04/06/24 04/30/24 04/29/24 18:00 release 24 hr amlodipine 5 mg tablet 5 mg PO QPM 04/06/24 04/30/24 04/29/24 18:00 aspirin 81 mg capsule 81 mg PO QAM 04/06/24 04/30/24 04/29/24 18:00 cetirizine 10 mg tablet 10 mg PO HS 04/06/24 04/30/24 04/29/24 23:59 coenzyme Q10 300 mg capsule (Co 300 mg PO QAM 04/06/24 04/30/24 1 Week Ago Q-10) ~04/23/24 ferrous sulfate 325 mg (65 mg 325 mg PO UD 04/06/24 04/30/24 3 Days Ago iron) tablet (FeroSul) ~04/27/24 fluticasone propionate 115 2 puff inhalation BID 04/06/24 04/30/24 Unknown mcg-salmeterol 21 mcg/actuation HFA inhaler (Advair HFA) fluticasone propionate 50 1 spray intranasal DAILY PRN 04/06/24 04/30/24 2 Weeks Ago mcg/actuation nasal congestion/sinus symptoms ~04/16/24 spray,suspension (Children's Flonase Allergy Relief) hydrocodone 7.5 mg-acetaminophen 1 tab PO Q6H PRN Pain 04/06/24 04/30/24 04/30/24 06:15 325 mg tablet lisinopril 40 mg tablet 40 mg PO QAM 04/06/24 04/30/24 04/29/24 08:00 meloxicam 7.5 mg tablet 7.5 mg PO BID 04/06/24 04/30/24 3 Days Ago ~04/27/24 metformin 500 mg tablet 1,000 mg PO BID 04/06/24 04/30/24 04/29/24 18:00 montelukast 10 mg tablet 10 mg PO HS 04/06/24 04/30/24 04/30/24 06:15 (Singulair) multivitamin 1 tab PO QPM 04/06/24 04/30/24 3 Days Ago ~04/27/24 omega-3 fatty acids 1 cap PO QPM 04/06/24 04/30/24 1 Week Ago ~04/23/24 pantoprazole 20 mg tablet,delayed 20 mg PO QAM 04/06/24 04/30/24 5 Days Ago release ~04/25/24 pioglitazone 30 mg tablet (Actos) 30 mg PO QPM 04/06/24 04/30/24 3 Days Ago ~04/27/24 rosuvastatin 5 mg tablet 5 mg PO UD 04/06/24 04/30/24 3 Days Ago ~04/27/24 tizanidine 4 mg tablet 4 mg PO Q6H 04/06/24 04/30/24 3 Days Ago ~04/27/24 trazodone 50 mg tablet 50 mg PO HS 04/06/24 04/30/24 04/29/24 23:59 oxycodone 5 mg tablet 5 mg PO Q6H PRN pain #30 tabs 05/01/24 Unknown tramadol 50 mg tablet 50 mg PO Q6H PRN pain, moderate 05/01/24 Unknown #30 tabs Active Medications Generic Name Dose Route Start Last Admin Trade Name Freq PRN Reason Stop Dose Admin Amlodipine Besylate 5 mg 04/30/24 21:00 04/30/24 20:51 Amlodipine Besylate 5 Mg Tab PO 05/30/24 20:59 5 mg QPM CINDY Administration Aspirin 81 mg 05/01/24 09:00 05/01/24 08:18 Aspirin 81 Mg Ectab PO 05/31/24 08:59 81 mg QAM CINDY Administration Cetirizine HCl 10 mg 04/30/24 21:00 04/30/24 20:51 Cetirizine Hcl 10 Mg Tablet PO 05/30/24 20:59 10 mg HS CINDY Administration Ferrous Sulfate 325 mg 04/30/24 17:00 04/30/24 17:51 Ferrous Sulfate 325 Mg Tab PO 05/30/24 16:59 325 mg [id number]@0900 CINDY Administration Fluticasone/Vilanterol 1 puffs 04/30/24 18:00 05/01/24 08:18 Fluticasone/Vilanterol 200/25mcg 14 Puffs/Inhaler INH 05/30/24 17:59 Not Given DAILY CINDY Hydromorphone HCl 0.5 mg 04/30/24 13:34 04/30/24 13:52 Hydromorphone Inj 0.5 Mg/0.5 Ml Syr IV 0.5 mg Q5M PRN Administration Pain Hydromorphone HCl 0.5 mg 04/30/24 16:36 05/01/24 06:43 Hydromorphone Inj 0.5 Mg/0.5 Ml Syr IV 05/14/24 16:35 0.5 mg Q3H PRN Administration MODERATE Pain (Scale 4,5,6) & Pre PT Hydromorphone HCl 1 mg 04/30/24 16:36 05/01/24 11:39 Hydromorphone Inj 1 Mg/Ml Syringe IV 05/14/24 16:35 1 mg Q3H PRN Administration SEVERE Pain (Scale 7,8,9,10) Dexamethasone 6 mg/ Syringe 1.5 mls @ 1 mls/min 05/01/24 09:00 05/01/24 08:18 IV 05/03/24 09:02 1 mls/min DAILY CINDY Administration Insulin Aspart 0 units 04/30/24 17:30 05/01/24 11:42 Insulin Aspart Per Unit Charge SC 05/30/24 17:29 10 units ACHS CINDY Administration Lisinopril 40 mg 05/01/24 09:00 05/01/24 08:19 Lisinopril 40 Mg Tab PO 05/31/24 08:59 40 mg QAM CINDY Administration Montelukast Sodium 10 mg 04/30/24 21:00 04/30/24 20:52 Montelukast Sodium 10 Mg Tablet PO 05/30/24 20:59 10 mg HS CINDY Administration Multivitamins 1 tab 04/30/24 21:00 04/30/24 20:52 Multivitamin Tab PO 05/30/24 20:59 1 tab QPM CINDY Administration Oxycodone HCl 5 - 10 mg 05/01/24 09:27 05/01/24 10:11 Oxycodone Hcl Ir 5 Mg Tab (Immediate Release) PO 05/15/24 09:26 7 mg Q4H PRN Administration Moderate Pain (Scale 4, 5, 6) Pantoprazole Sodium 40 mg 05/01/24 09:00 05/01/24 08:19 Pantoprazole 40 Mg Tab PO 05/31/24 08:59 40 mg QAM CINDY Administration Polyethylene Glycol 17 gm 05/01/24 06:00 05/01/24 11:47 Polyethylene (Miralax) 17 Gm Pack PO 05/31/24 05:59 17 gm Q6 CINDY Administration Rosuvastatin Calcium 5 mg 04/30/24 17:10 04/30/24 18:05 Rosuvastatin Calcium 5 Mg Tab PO 05/30/24 17:09 5 mg [id number]@0900 CINDY Administration Senna/Docusate Sodium 2 tab 04/30/24 21:00 04/30/24 20:49 Docusate Sodium/Senna 50/8.6mg Tab PO 05/30/24 20:59 2 tab HS CINDY Administration Tamsulosin HCl 0.4 mg 04/30/24 21:00 04/30/24 20:53 Tamsulosin Hcl 0.4 Mg Cap PO 05/30/24 20:59 0.4 mg QPM CINDY Administration Tizanidine HCl 4 mg 04/30/24 17:00 05/01/24 10:11 Tizanidine Hcl 4 Mg Tablet PO 05/30/24 16:59 4 mg Q6H CINDY Administration Tramadol HCl 50 - 100 mg 04/30/24 16:36 05/01/24 05:35 Tramadol Hcl 50 Mg Tablet PO 05/30/24 16:35 100 mg Q4H PRN Administration Moderate-Severe pain & Pre PT Trazodone HCl 50 mg 04/30/24 21:00 04/30/24 20:54 Trazodone Hcl 50 Mg Tab PO 05/30/24 20:59 50 mg HS CINDY Administration
[2024-05-01] MEDS ORDERED: COENZYME Q10 300 MG PO SCH (09:00)
[2024-05-01] MEDS: oxyCODONE HCL IR 5 MG TAB (IMMEDIATE RELEASE) PO PRN (10:11)
--- NOTE | 2024-05-01 10:32 | Pharmacy Report ---
Pharmacy Glycemic Short Note 2 - Date of Service May 01, 2024 - Glycemic Short BSG Results (Last 24 hours): 04/30/24 04/30/24 04/30/24 12:21 17:56 21:12 Glucose POC Glucose 141 H 145 H 162 H 05/01/24 05/01/24 07:05 07:42 Glucose 158 H POC Glucose 153 H OUTPATIENT ANTIDIABETIC REGIMEN: * metformin 1000mg po BID * pioglitazone 30 mg q PM HbA1c: 6.1% on 04/09/24 ASSESSMENT: * 68 year old male well controlled type 2 diabetic admitted 04/30 for lumbar decompression and fusion (POD #1). Pharmacy was consulted for glycemic management postop. * Post op BSG was 145mg/dl yesterday and marisela to 162mg/dl at HS. Dexamethasone was given preop. 5 units of Lantus were given and weight based bolus insulin with a stress between 2 and 3 was started. * Fasting BSG this morning was 153mg/dl. Patient continues on daily iv dexamethasone so lantus 5 units SQ x 1 was ordered for this morning. The CF was tightened slightly for the bolus insulin starting with breakfast this morning. PLAN FOR INPATIENT GLYCEMIC CONTROL: * Hold outpatient oral diabetes medications * Basal insulin * Lantus 5 units SQ x 1 last evening and x 1 this morning. * Bolus insulin * NovoLog per scale ACHS or Q6hrs while NPO * Goal Range: Low 110 mg/dL - High 140 mg/dL * Correction Factor: 20 mg/dL/unit * Nutritional / Prandial insulin per carb ratio of 1 unit per 9 grams CHO consumed
--- NOTE | 2024-05-01 11:30 | Orthopedic Progress Note ---
Date of Service May 01, 2024 Assessment & Plan (1) Lumbosacral spondylosis with radiculopathy: Plan: At this time we will continue physical therapy monitor his KALYANI operatively discharge home the next few days. Admission and Anticipated Discharge Date Admission Date: April 30, 2024 Subjective Back pain improved. He has been able to tolerate ambulation and sitting in the chair. Physical Exam Physical Exam: Patient is currently in bed. He is neurologically intact. Results & Data Vital Signs (Past 12 Hours) Vital Signs Temp Pulse Resp BP BP Pulse Ox O2 Del Method 05/01/24 10:52 36.7 C 77 16 134/68 93 Room Air 05/01/24 07:44 36.7 C 70 16 133/68 97 Room Air 05/01/24 03:00 36.7 C 67 14 114/56 L 94 Room Air
[2024-05-02] MEDS: LANTUS PER UNIT CHARGE SC SCH (08:20)
--- NOTE | 2024-05-02 09:22 | Orthopedic Progress Note ---
Date of Service May 02, 2024 Assessment & Plan (1) Lumbosacral spondylosis with radiculopathy: Plan: At this point we will continue physical therapy monitor his KALYANI output and possible discharge home tomorrow. Admission and Anticipated Discharge Date Admission Date: April 30, 2024 Subjective Patient's back pain is controlled leg symptoms markedly improved. Physical Exam Physical Exam: Patient is up and ambulating halls with his walker. He is good strength testing appears comfortable. Results & Data Vital Signs (Past 12 Hours) Vital Signs Temp Pulse Resp BP Pulse Ox O2 Del Method 05/02/24 07:23 36.4 C L 67 18 114/64 93 Room Air Queries Orthopedic Spine Acute Posthemorrhagic Anemia: Yes
--- NOTE | 2024-05-02 09:53 | Hospitalist Progress Note ---
Date of Service May 02, 2024 Assessment & Plan (1) S/P spinal surgery: (2) Asthma: (3) Hypertension: (4) Diabetes mellitus, type 2: (5) Iron deficiency: (6) Dyslipidemia: Plan This is a 68yo M with a PMH of DM II, HTN, [place], asthma and other medical problems listed below who is POD#0 s/p Lumbar decompression with bilateral medial facetectomies and foraminotomies L2-L5 and posterior spinal fusion L3-L5 by Dr. Dunbar. POD#2 s/p Lumbar decompression with bilateral medial facetectomies and foraminotomies L2-L5 and posterior spinal fusion L3-L5 by Dr. Dunbar Per ortho for pain control, wound care, anticoagulation and activities continue incentive spirometry, PT/OT as able -Plan for stairs given 2 story home, will need walker plan for dispo home likely per patient goals, 1-2 days #Asthma: Stable. Continue Advair BID, PRN albuterol inh, singulair #Hypertension: Continue lisinopril daily, amlodipine HS, alfuzosin HS #Diabetes mellitus, type 2: A1c 6.1 / Hold home agents SSI while in-patient, receiving IV dexamethasone Glycemic pharmacy consulted [facility] HS #Acute on chronic anemia 2/2 post op loss # Iron deficiency: hgb preop 13, now 11.0 monitor output from KALYANI drain trend CBC in am , transfuse <7 #Dyslipidemia: Continue statin DVT Ppx: SCDs PCP: [facility] Harry Dispo: Admitted to med/surg, ortho primary Admission and Anticipated Discharge Date Admission Date: April 30, 2024 Subjective NAEO Ambulating, however, needs to await PT given stairs at home Reports pain better controlled at this time Denies any other acute concerns, passing flatus Physical Exam Constitutional: WD/WN, vitals as above Respiratory: normal respiratory effort, lungs clear to auscultation Cardiovascular: RRR, no murmur, no edema Gastrointestinal (Abdomen): normal bowel sounds, soft, nontender, no hepatosplenomegaly Results & Data Results & Data Vital Signs (Past 12 Hours) Vital Signs Temp Pulse Resp BP Pulse Ox O2 Del Method 05/02/24 07:23 36.4 C L 67 18 114/64 93 Room Air Medications Administered Home Medications Medication Instructions Recorded Confirmed Last Taken albuterol sulfate 90 mcg/actuation 2 puff inhalation Q6H PRN SOB 04/06/24 04/30/24 1 Month Ago aerosol inhaler ~03/31/24 alfuzosin 10 mg tablet,extended 10 mg PO QPM 04/06/24 04/30/24 04/29/24 18:00 release 24 hr amlodipine 5 mg tablet 5 mg PO QPM 04/06/24 04/30/24 04/29/24 18:00 aspirin 81 mg capsule 81 mg PO QAM 04/06/24 04/30/24 04/29/24 18:00 cetirizine 10 mg tablet 10 mg PO HS 04/06/24 04/30/24 04/29/24 23:59 coenzyme Q10 300 mg capsule (Co 300 mg PO QAM 04/06/24 04/30/24 1 Week Ago Q-10) ~04/23/24 ferrous sulfate 325 mg (65 mg 325 mg PO UD 04/06/24 04/30/24 3 Days Ago iron) tablet (FeroSul) ~04/27/24 fluticasone propionate 115 2 puff inhalation BID 04/06/24 04/30/24 Unknown mcg-salmeterol 21 mcg/actuation HFA inhaler (Advair HFA) fluticasone propionate 50 1 spray intranasal DAILY PRN 04/06/24 04/30/24 2 Weeks Ago mcg/actuation nasal congestion/sinus symptoms ~04/16/24 spray,suspension (Children's Flonase Allergy Relief) hydrocodone 7.5 mg-acetaminophen 1 tab PO Q6H PRN Pain 04/06/24 04/30/24 04/30/24 06:15 325 mg tablet lisinopril 40 mg tablet 40 mg PO QAM 04/06/24 04/30/24 04/29/24 08:00 meloxicam 7.5 mg tablet 7.5 mg PO BID 04/06/24 04/30/24 3 Days Ago ~04/27/24 metformin 500 mg tablet 1,000 mg PO BID 04/06/24 04/30/24 04/29/24 18:00 montelukast 10 mg tablet 10 mg PO HS 04/06/24 04/30/24 04/30/24 06:15 (Singulair) multivitamin 1 tab PO QPM 04/06/24 04/30/24 3 Days Ago ~04/27/24 omega-3 fatty acids 1 cap PO QPM 04/06/24 04/30/24 1 Week Ago ~04/23/24 pantoprazole 20 mg tablet,delayed 20 mg PO QAM 04/06/24 04/30/24 5 Days Ago release ~04/25/24 pioglitazone 30 mg tablet (Actos) 30 mg PO QPM 04/06/24 04/30/24 3 Days Ago ~04/27/24 rosuvastatin 5 mg tablet 5 mg PO UD 04/06/24 04/30/24 3 Days Ago ~04/27/24 tizanidine 4 mg tablet 4 mg PO Q6H 04/06/24 04/30/24 3 Days Ago ~04/27/24 trazodone 50 mg tablet 50 mg PO HS 04/06/24 04/30/24 04/29/24 23:59 oxycodone 5 mg tablet 5 mg PO Q6H PRN pain #30 tabs 05/01/24 Unknown tramadol 50 mg tablet 50 mg PO Q6H PRN pain, moderate 05/01/24 Unknown #30 tabs Active Medications Generic Name Dose Route Start Last Admin Trade Name Freq PRN Reason Stop Dose Admin Amlodipine Besylate 5 mg 04/30/24 21:00 05/01/24 21:03 Amlodipine Besylate 5 Mg Tab PO 05/30/24 20:59 5 mg QPM CINDY Administration Aspirin 81 mg 05/01/24 09:00 05/02/24 07:21 Aspirin 81 Mg Ectab PO 05/31/24 08:59 81 mg QAM CINDY Administration Cetirizine HCl 10 mg 04/30/24 21:00 05/01/24 21:04 Cetirizine Hcl 10 Mg Tablet PO 05/30/24 20:59 10 mg HS CINDY Administration Ferrous Sulfate 325 mg 04/30/24 17:00 05/02/24 07:21 Ferrous Sulfate 325 Mg Tab PO 05/30/24 16:59 325 mg [id number] CINDY Administration Fluticasone/Vilanterol 1 puffs 04/30/24 18:00 05/02/24 07:20 Fluticasone/Vilanterol 200/25mcg 14 Puffs/Inhaler INH 05/30/24 17:59 Not Given DAILY CINDY Hydromorphone HCl 0.5 mg 04/30/24 13:34 04/30/24 13:52 Hydromorphone Inj 0.5 Mg/0.5 Ml Syr IV 0.5 mg Q5M PRN Administration Pain Hydromorphone HCl 0.5 mg 04/30/24 16:36 05/01/24 06:43 Hydromorphone Inj 0.5 Mg/0.5 Ml Syr IV 05/14/24 16:35 0.5 mg Q3H PRN Administration MODERATE Pain (Scale 4,5,6) & Pre PT Hydromorphone HCl 1 mg 04/30/24 16:36 05/01/24 11:39 Hydromorphone Inj 1 Mg/Ml Syringe IV 05/14/24 16:35 1 mg Q3H PRN Administration SEVERE Pain (Scale 7,8,9,10) Dexamethasone 6 mg/ Syringe 1.5 mls @ 1 mls/min 05/01/24 09:00 05/01/24 08:18 IV 05/03/24 09:02 1 mls/min DAILY CINDY Administration Insulin Aspart 0 units 04/30/24 17:30 05/02/24 08:20 Insulin Aspart Per Unit Charge OH 05/30/24 17:29 5 units ACHS CINDY Administration Insulin Glargine 5 units 05/02/24 09:00 05/02/24 08:20 Lantus Per Unit Charge [place] 05/03/24 09:01 5 units DAILY CINDY Administration Lisinopril 40 mg 05/01/24 09:00 05/02/24 07:21 Lisinopril 40 Mg Tab PO 05/31/24 08:59 40 mg QAM CINDY Administration Montelukast Sodium 10 mg 04/30/24 21:00 05/01/24 21:04 Montelukast Sodium 10 Mg Tablet PO 05/30/24 20:59 10 mg HS CINDY Administration Multivitamins 1 tab 04/30/24 21:00 05/01/24 21:04 Multivitamin Tab PO 05/30/24 20:59 1 tab QPM CINDY Administration Oxycodone HCl 5 - 10 mg 05/01/24 09:27 05/02/24 07:19 Oxycodone Hcl Ir 5 Mg Tab (Immediate Release) PO 05/15/24 09:26 5 mg Q4H PRN Administration Moderate Pain (Scale 4, 5, 6) Pantoprazole Sodium 40 mg 05/01/24 09:00 05/01/24 08:19 Pantoprazole 40 Mg Tab PO 05/31/24 08:59 40 mg QAM CINDY Administration Polyethylene Glycol 17 gm 05/01/24 06:00 05/02/24 05:26 Polyethylene (Miralax) 17 Gm Pack PO 05/31/24 05:59 17 gm Q6 CINDY Administration Rosuvastatin Calcium 5 mg 04/30/24 17:10 05/02/24 07:20 Rosuvastatin Calcium 5 Mg Tab PO 05/30/24 17:09 5 mg [id number] CINDY Administration Senna/Docusate Sodium 2 tab 04/30/24 21:00 05/01/24 21:04 Docusate Sodium/Senna 50/8.6mg Tab PO 05/30/24 20:59 Not Given HS CINDY Tamsulosin HCl 0.4 mg 04/30/24 21:00 05/01/24 21:05 Tamsulosin Hcl 0.4 Mg Cap PO 05/30/24 20:59 0.4 mg QPM CINDY Administration Tizanidine HCl 4 mg 04/30/24 17:00 05/02/24 05:26 Tizanidine Hcl 4 Mg Tablet PO 05/30/24 16:59 4 mg Q6H CINDY Administration Tramadol HCl 50 - 100 mg 04/30/24 16:36 05/02/24 09:50 Tramadol Hcl 50 Mg Tablet PO 05/30/24 16:35 50 mg Q4H PRN Administration Moderate-Severe pain & Pre PT Trazodone HCl 50 mg 04/30/24 21:00 05/01/24 21:04 Trazodone Hcl 50 Mg Tab PO 05/30/24 20:59 50 mg HS CINDY Administration
[2024-05-03 06:21] LABS: Hemoglobin 11.5 g/dl (14.0-18.0); Mean Corpuscular Hemoglobin 31.3 pg (25.0-34.0); Mean Corpuscular Hgb Conc 32.9 g/dL (32.0-36.0); Mean Corpuscular Volume 95.1 fL (80.0-100.0); Platelet Count 363 K/uL (130-400); RDW Coefficient of Variation 13.6 % (11.5-14.5); RDW Standard Deviation 47.8 fL (36.4-46.3); Red Blood Count 3.68 M/uL (4.70-6.10); White Blood Count 14.71 K/ul (4.8-10.8)
--- NOTE | 2024-05-03 07:42 | Orthopedic Progress Note ---
Date of Service May 03, 2024 Assessment & Plan (1) Lumbosacral spondylosis with radiculopathy: Plan: Patient is stable at this point but he may be a little dehydrated a little orthostatic as well. His and placing a significant amount of drainage out through his drains is not independent. He has not had a bowel movement. For these reasons were going to keep him in the hospital today get ammonia physical therapy make sure he uses his spirometer and has good intake. Hopefully he will be ready to go tomorrow. Admission and Anticipated Discharge Date Admission Date: April 30, 2024 Subjective Patient was seen bedside in room 303. He states he is getting somewhat lightheaded when he first stands up. Even going from a lying to sitting position makes him somewhat dizzy. He states that he is drinking fluids but fluid balance of -210. His pain is relatively well-controlled. He has not yet had a bowel movement. He still needs assistance with physical therapy to get up and walk. He denies any other numbness, tingling, or paresthesias. Physical Exam Physical Exam: On exam he is alert and oriented. He answers questions appropriately. His dressing is clean dry and intact his abdomen soft nontender his calves are s upple and nontender. His drain is placed out 50 cc, 70 cc, and 50 cc on the last 3 shifts. His respirations are easy and nonlabored. Cardiovascular exam reveals no gross abnormalities. Results & Data Vital Signs (Past 12 Hours) Vital Signs Temp Pulse Resp BP Pulse Ox O2 Del Method 05/03/24 07:32 110/57 L 05/03/24 07:05 36.5 C 64 18 94/53 L 94 Room Air
--- NOTE | 2024-05-03 14:39 | Hospitalist Progress Note ---
Date of Service May 03, 2024 Assessment & Plan (1) S/P spinal surgery: (2) Asthma: (3) Hypertension: (4) Diabetes mellitus, type 2: (5) Iron deficiency: (6) Dyslipidemia: Plan Patient with transient low blood pressure this morning. Has subsequently improved without intervention. Patient reports that he has chronic lightheadedness and dizziness at home often with positional changes. He also states at home his blood pressure will fluctuate greatly. Put hold parameters on amlodipine tonight Continue other medications Encourage oral fluid intake Encourage activity, nurse states he was ambulating halls earlier this morning without difficulty. Medically ready for discharge when discharged by surgery. Follow-up with his PCP Admission and Anticipated Discharge Date Admission Date: April 30, 2024 Subjective Patient sitting up in chair. Reported a little bit of dizziness this morning. Blood pressure has improved since this morning Physical Exam Physical Exam: Constitutional: Alert, nontoxic HEENT: Mucous membranes moist. Lungs: Clear to auscultation, decreased, no wheezes rales or rhonchi CV: S1-S2, regular Abdomen: Soft, nontender, nondistended Extremities: No significant edema Neuro: No focal deficits Psych: Cooperative, normal mood Results & Data Results & Data Vital Signs (Past 12 Hours) Vital Signs Temp Pulse Resp BP Pulse Ox O2 Del Method 05/03/24 08:00 Room Air 05/03/24 07:32 110/57 L 05/03/24 07:05 36.5 C 64 18 94/53 L 94 Room Air Diagnostic Findings [facility] Hemoglobin 11.5 Glucose 130
[2024-05-03 14:44] VITALS: O2SAT 95
[2024-05-04 07:25] VITALS: BP 147/67; PULSE 72; RESP 18; TEMP 98.6
--- NOTE | 2024-05-04 10:26 | Hospitalist Progress Note ---
Date of Service May 04, 2024 Assessment & Plan (1) S/P spinal surgery: (2) Asthma: (3) Hypertension: (4) Diabetes mellitus, type 2: (5) Iron deficiency: (6) Dyslipidemia: Plan Patient status post surgical surgery. Medical issues are stable. Patient denies any lightheadedness or dizziness today and is up and ambulating independently. Medically stabilized for discharge. Recommend continuing home medications at discharge Discharge home when appropriate by surgical attending. Admission and Anticipated Discharge Date Admission Date: April 30, 2024 Subjective Patient reports he is feeling great, ambulating to the bathroom no problems. No lightheadedness or dizziness. Moved bowels. Physical Exam Physical Exam: Constitutional: Alert, sitting in chair, observed walking in the room independently HEENT: Mucous membranes moist. Lungs: Clear to auscultation, decreased, no wheezes rales or rhonchi CV: S1-S2, regular Abdomen: Soft, nontender, nondistended Extremities: No significant edema Musculoskeletal: Surgical dressing dry and intact with drain Neuro: No focal deficits Psych: Cooperative, normal mood Results & Data Results & Data Vital Signs (Past 12 Hours) Vital Signs Temp Pulse Resp BP Pulse Ox O2 Del Method 05/04/24 07:20 37.0 C 72 18 147/67 H 95 Room Air Diagnostic Findings Reviewed imaging, laboratory and diagnostic studies. Pertinent findings as below.
--- NOTE | 2024-05-04 10:41 | Discharge Summary ---
Date of Service May 04, 2024 Admission HPI Per Admitting Provider This is a 60-year-old male who presents with chronic persistent back and bilaterally pain after failing course of nonoperative care is here for surgical invention. Principal Diagnosis Multilevel lumbar spondylosis with radiculopathy Discharge Data Allergies Allergy/AdvReac Type Severity Reaction Status Date / Time No Known Allergies Allergy Verified 04/30/24 08:40 Consultations 04/30/24 16:36 Consult Hospitalist Routine Procedures Performed Operation Date: 04/30/24 09:35 Actual Procedures p L3-L5 Decompression and Fusion(Not Applicable) - Chavez Dunbar DO Ordered Studies 04/30/24 09:35 FL lumbar spine 2-3V Routine Hospital Course (1) Lumbosacral spondylosis with radiculopathy: Patient went multilevel lumbar decompression fusion tolerated this well was taken to orthopedic for postoperative. Postop he progressed appropriate. Marked improvement of his back and leg pain. KALYANI drain decreasing. Excellent strength testing. Subsidy discharged home. Discharge orders instructions from the chart for further review. Total Time Total Time Spent Total Time Spent (In Minutes): 20 minutes Discharge Plan Discharge Items Patient Disposition: Home - Self-Care Reason For Visit: Lumbar Disc Disease with Radiculopathy, Degenerati Discharge Diagnosis: Lumbar spondylosis with radiculopathy Activity: As commented below Non-emergency contact: Primary Care Provider Call non-emergency contact if: you have any medication questions Follow-up/Referrals: Sushant Roe MD [Primary Care Provider] - Diet: Regular Addtl Attending Provider Instructions: ACTIVITY RECOMMENDATIONS: SELF CARE INSTRUCTIONS AFTER THORACIC/LUMBAR FUSIONS 1. You may walk to your tolerance. It is good exercise for your legs and back. Expect some back and intermittent leg aches and pains. 2. You may perform "counter-top" level activities (make a sandwich, xavier with a project, etc.). 3. No bending or lifting of more than 10 pounds or back twisting of any nature (roll like a log when turning in bed). 4. You may ride in a car for 20-30 minutes at a time. No driving until after your first visit with your doctor. 5. Frequent changes of position and restricting sitting to 30 minutes at a time will help limit the amount of back spasms and stiffness you may experience. 6. You may discontinue the use of ambulatory aids (cane, crutches, etc.) once your strength and confidence allow. 7. You may community relations coordinator the shower and let water strike your incision when you arrive home at least once daily. Do not take a tub bath, sit in a hot tub or go into a swimming pool until after your first recheck in the office. 8. You may resume previous diet. SPECIAL CARE INSTRUCTIONS: VERY IMPORTANT TO READ AND REVIEW A. Your surgical incision has been closed with a cosmetic suture under the skin that will dissolve in about 6 weeks. In 14 days, you can use a pair of clean scissors and cut the suture that is left outside of the skin at the ends of your incision. 1. The small skin tapes can be removed 7 days after surgery if they have not fallen off by that point. 2. You may keep the wound open to air as much as possible to promote healing after post-op day number 5 unless told otherwise by your doctor. 3. If you think the wound looks like it is becoming infected (redness or worsening drainage) and/or you are experiencing fever, chill or worsening back pain and muscle spasms, contact the office so that we may evaluate you as soon as possible. B. Complications are uncommon, but please contact us if you have any signs or symptoms of: 1. wound infection (fever higher than 102.5 degrees F, redness, separation of wound, drainage, or increasing pain from the incision) 2. blood clots in legs (pain, swelling, redness and warmth in legs) 3. urinary tract infection (fever higher than 102.5 degrees F, burning upon urination or increased frequency of urination) 4. nerve problems (inability to walk on your toes or heels, numbness, loss of bowel or bladder control) 5. any other symptoms that concern you C. Please call the office at if you have any concerns or questions about your operation or recovery. D. No smoking! Smoking drastically decreases the chance of a solid fusion. E. Do not take any anti-inflammatory medications (Indocin, Advil, Motrin, Aspirin, Naprosyn, etc.) as these may inhibit the chance of a solid fusion. Tylenol is okay to take for pain. MANAGING PAIN AFTER SPINAL SURGERY 1. Narcotic medication is intended for short-term use and will be provided for surgical pain. Surgical pain usually lasts for a period of 4-6 weeks. Narcotic medication includes Percocet, Vicodin, Darvocet, Tylenol #3 or Lortab. 2. Longer-term pain is more appropriately treated with non-narcotic medication such as Tylenol ES. 3. Muscle spasm is not appropriately treated with narcotics. Muscle relaxers such as Soma, Flexeril or Skelaxin can be used along with Tylenol ES. 4. Remember that we all live with some "aches and pains". This is not unusual or uncommon after an injury or as we get older. a. Back pain is expected and may include muscle spasms for 4 to 6 weeks after surgery. The pain should gradually improve. If the pain worsens for no apparent reason, please contact the office. b. Intermittent leg pain may also be experienced and should not be concerned about unless it worsens for no apparent reason. If so, please contact the office. 5. We will provide appropriate medication within the normal guidelines of their prescribed use. We will also be very cautious and aware of potential abuse and extended duration of patients' medication needs. a. Pain medications are for your comfort and to assist with sleep and rest so that the tissue can heal. They are not provided in order to return to normal activity and should not be used through the day. To do so or worsening pain at night can result from ongoing tissue damage and development of tolerance to the prescribed medicine. 6. Please allow 2-3 days to process refills. Prescriptions will not be mailed but must be picked up at the office. FOLLOW UP VISIT: Keep your scheduled follow-up appointment. Any questions, please call the office at . Pending Studies at Discharge: No Stand-Alone Forms: My [facility] [employer], Smoking Cessation Medications and DC Order Prescriptions: New tramadol 50 mg tablet 50 mg PO Q6H PRN (Reason: pain, moderate) Qty: 30 0RF oxycodone 5 mg tablet 5 mg PO Q6H PRN (Reason: pain) Qty: 30 0RF Continued multivitamin Tablet 1 tab PO QPM metformin 500 mg Tablet 1,000 mg PO BID trazodone 50 mg Tablet 50 mg PO HS cetirizine 10 mg Tablet 10 mg PO HS tizanidine 4 mg Tablet 4 mg PO Q6H amlodipine 5 mg Tablet 5 mg PO QPM pantoprazole 20 mg Tablet,Delayed Release (Dr/Ec) 20 mg PO QAM hydrocodone-acetaminophen 7.5-325 mg Tablet 1 tab PO Q6H PRN (Reason: Pain) Patient Comments: takes 1/2 tablet Q3H ferrous sulfate [FeroSul] 325 mg (65 mg iron) Tablet 325 mg PO UD Rx Instructions: takes 4 days per week montelukast [Singulair] 10 mg Tablet 10 mg PO HS albuterol sulfate 90 mcg/actuation Hfa Aerosol Inhaler 2 puff INHALATION Q6H PRN (Reason: SOB) pioglitazone [Actos] 30 mg Tablet 30 mg PO QPM lisinopril 40 mg Tablet 40 mg PO QAM fluticasone propionate [Children's Flonase Allergy Rlf] 50 mcg/actuation [place],Suspension 1 spray INTRANASAL DAILY PRN (Reason: congestion/sinus symptoms) Rx Instructions: administer into each nostril Fish Oil Capsule 1 cap PO QPM rosuvastatin 5 mg Tablet 5 mg PO UD Rx Instructions: takes 4 days per week, in the morning alfuzosin 10 mg Tablet Extended Release 24 Hr 10 mg PO QPM Rx Instructions: administer after the same meal each day Co Q-10 300 mg Capsule 300 mg PO QAM fluticasone propion-salmeterol [Advair HFA] 115-21 mcg/actuation Hfa Aerosol Inhaler 2 puff INHALATION BID Patient Comments: takes 3-4 puffs once daily aspirin 81 mg Capsule 81 mg PO QAM Discontinued meloxicam 7.5 mg Tablet 7.5 mg PO BID Discharge Orders: Discharge Order (Routine); Ordered 05/04/24 Ordered By: Chavez Dunbar Admission Data Admit Date/Time: 04/30/24 12:11 Attending Provider: Chavez Dunbar Admit Provider: Chavez Dunbar Primary Care Provider: Sushant Roe Other Providers: Valery Ruiz. Other Interventions: Discharge Summary Assessment (RN) Last Done: 05/04/24 10:37
== END 2024-05-04 13:15 | disposition home or self-care (01) | DRG 427 ==
LOC: ASU 07:56 → PACUINP 12:11 → 3E 16:30
DX: G89.29 Other chronic pain; J45.909 Unspecified asthma, uncomplicated; E61.1 Iron deficiency; Z79.899 Other long term (current) drug therapy; M48.061 Spinal stenosis, lumbar region without neurogenic claudication; E11.9 Type 2 diabetes mellitus without complications; Z79.84 Long term (current) use of oral hypoglycemic drugs; I10 Essential (primary) hypertension; Z79.1 Long term (current) use of non-steroidal anti-inflammatories (NSAID); E86.0 Dehydration; Z79.82 Long term (current) use of aspirin; Z87.891 Personal history of nicotine dependence; I95.1 Orthostatic hypotension; E78.5 Hyperlipidemia, unspecified; D62 Acute posthemorrhagic anemia; M47.27 Other spondylosis with radiculopathy, lumbosacral region